=== PATIENT | female | born 2000 | race Caucasian/White ===

== ENCOUNTER 2024-02-05 21:52 | Emergency (ER) | payer OTHER ==
[~2024-02-05] VITALS: Ht 170.2 cm; Wt 65.8 kg
[2024-02-06] MEDS ORDERED: IBUPROFEN 600 MG TABLET ONE (00:20)
[2024-02-06] MEDS ORDERED: TDAP [DIPH/PERTUSSIS/TET] 0.5 ML VIAL IM ONE (00:20)
[2024-02-06] MEDS: IBUPROFEN 600 MG TABLET PO ONE (00:25)
[2024-02-06] MEDS: TDAP [DIPH/PERTUSSIS/TET] 0.5 ML VIAL IM ONE (00:26)
[2024-02-06 02:02] VITALS: BP 115/73; TEMP 98.4; O2SAT 99
== END 2024-02-06 02:02 | disposition home or self-care (01) ==
LOC: ER 22:06
DX: S61.213A Laceration without foreign body of left middle finger without damage to nail, initial encounter (principal); M79.642 Pain in left hand; Z88.8 Allergy status to other drugs, medicaments and biological substances; Z60.2 Problems related to living alone; Z91.010 Allergy to peanuts; X58.XXXA Exposure to other specified factors, initial encounter; Y93.89 Activity, other specified; Y92.89 Other specified places as the place of occurrence of the external cause; Y99.8 Other external cause status
CPT/HCPCS: 73130-TC; 90715